=== PATIENT | male | born 1945 | race Caucasian/White ===

== ENCOUNTER 2017-05-23 14:04 | Emergency (ER) | payer MEDICARE ==
[~2017-05-23] VITALS: Ht 182.9 cm; Wt 100.0 kg
[~2017-05-23 14:04] MED LIST: AMARYL4 MG PO; AMOXICILLIN875 MG OR; AVODART0.5 MG PO; BYSTOLIC5 MG PO; LISINOP/HCTZ1 TAB PO; METFORMIN HCL1000 MG PO; ONGLYZA5 MG OR; SIMVASTATIN40 MG PO; TOBRAMYCIN0.3 % OS
[2017-05-23] MEDS ORDERED: ASPIRIN 81 LOW81 MG PO (14:54)
[2017-05-23] MEDS ORDERED: CARVEDILOL25 MG PO (14:59)
[2017-05-23] MEDS ORDERED: LISINOP/HCTZ1 TA1 PO (15:02)
[2017-05-23] MEDS ORDERED: METFORMIN500 MG PO (15:05)
[2017-05-23] MEDS ORDERED: WARFARIN7.5 MG PO (15:07)
[2017-05-23] MEDS ORDERED: FINASTERIDE5 MG PO (15:08)
[2017-05-23] MEDS ORDERED: TRAMADOL HYDROC50 MG PO (15:09)
[2017-05-23] MEDS ORDERED: WARFARIN5 MG PO (15:22)
[2017-05-23 15:23] VITALS: BP 151/83
== END 2017-05-23 15:23 | disposition home or self-care (01) ==
LOC: ED 14:04
DX: S22.42XA Multiple fractures of ribs, left side, initial encounter for closed fracture (principal); R07.81 Pleurodynia; W01.198A Fall on same level from slipping, tripping and stumbling with subsequent striking against other object, initial encounter; Y93.01 Activity, walking, marching and hiking; Y92.009 Unspecified place in unspecified non-institutional (private) residence as the place of occurrence of the external cause

== ENCOUNTER 2022-05-22 10:18 | Emergency (ER) | payer MEDICARE ==
[~2022-05-22] VITALS: Ht 182.9 cm; Wt 108.4 kg
[~2022-05-22 10:18] MED LIST changes: +ASPIRIN 81 LOW81 MG PO; +CARVEDILOL25 MG PO; +FINASTERIDE5 MG PO; +LISINOP/HCTZ1 TA1 PO; +METFORMIN500 MG PO; +TRAMADOL HYDROC50 MG PO; +WARFARIN5 MG PO; +WARFARIN7.5 MG PO
[2022-05-22 10:44] VITALS: BP 138/67
[2022-05-22 11:01] VITALS: BP 122/54
[2022-05-22] MEDS ORDERED: CARVEDILOL3.125 MG PO (11:08)
[2022-05-22] MEDS ORDERED: METFORMIN HCL1000 MG PO (11:09)
[2022-05-22] MEDS ORDERED: JANUVIA100 MG PO (11:11)
[2022-05-22] MEDS ORDERED: JARDIANCE25 MG (11:12)
[2022-05-22 11:25] LABS: BASO% 0.8 % (0-3); EOS% 1.4 % (0-8); HEMATOCRIT 44.2 % (39.0-50.0); HEMOGLOBIN 14.8 g/dl (14.0-18.0); IMMATURE GRANULOCYTES 0.3 % (0.0-5.0); LYMPH% 5.2 % (15-41); MEAN CELL VOLUME 88.2 fL CALC (80.0-100.0); MEAN CORPUSCULAR HGB 29.5 pG CALC (26.0-32.0); MEAN CORPUSCULAR HGB CONC 33.5 g/dL CAL (32.0-36.0); MONO% 6.3 % (2-13); NEUT# 7.95 thou/uL (1.82-7.42); RED BLOOD COUNT 5.01 mill/uL (4.70-6.10); RED CELL DISTRI WIDTH 14.7 % (11.5-15.5)
[2022-05-22 11:30] VITALS: BP 117/51
[2022-05-22 12:30] VITALS: BP 92/64
[2022-05-22 14:00] LABS: INTERNATIONAL NORMALIZED RATIO 3.9 RATIO (0.7-1.3); PROTHROMBIN TIME 36.2 SECONDS (9.0-12.5)
[2022-05-22 14:08] VITALS: BP 92/64
[2022-05-22 14:27] LABS: ANION GAP 9 (6-22 (CALC)); BUN 23 mg/dL (8-23); BUN/CREATININE RATIO 21 (12-20 (CALC)); CARBON DIOXIDE 29 mmol/l (22-30); CHLORIDE 105 mmol/l (95-108); CREATININE 1.1 mg/dL (0.7-1.3); GFR FOR AFR.AMER. > 60 ML/MIN (>=60 (CALC)); GFR OTHER RACES > 60 ML/MIN (>=60 (CALC)); POTASSIUM 4.1 mmol/l (3.5-5.1); SODIUM 138 mmol/l (137-146)
== END 2022-05-22 13:50 | disposition short-term general hospital (02) ==
LOC: ED 10:18
PROVIDERS: Emergency Medicine
DX: S06.5X9A Traumatic subdural hemorrhage with loss of consciousness of unspecified duration, initial encounter (principal); I10 Essential (primary) hypertension; E11.9 Type 2 diabetes mellitus without complications; W01.0XXA Fall on same level from slipping, tripping and stumbling without subsequent striking against object, initial encounter; Z86.718 Personal history of other venous thrombosis and embolism; Z79.01 Long term (current) use of anticoagulants